=== PATIENT | male | born 2000 | race Caucasian/White ===

== ENCOUNTER 2022-01-13 21:04 | Emergency (ER) | payer OTHER ==
[~2022-01-13] VITALS: Ht 182.9 cm; Wt 86.2 kg
[2022-01-13 21:05] VITALS: BP 155/80
--- NOTE | 2022-01-13 21:13 | NUR ---
GIUSEPPE KOO ON A 5150 HOLD. TAKEN TO CHAIR
[2022-01-13 21:45] LABS: BASOPHILS # (AUTO) 0.2 K/uL (0.00-0.22); BASOPHILS % (AUTO) 2.3 % (0.0-2.0); EOSINOPHILS # (AUTO) 0.1 K/uL (0-0.4); EOSINOPHILS % (AUTO) 1.4 % (0.0-4.0); HEMATOCRIT 41.3 % (36-52); HEMOGLOBIN 14.5 g/dL (12.0-18.0); LYMPHOCYTES # (AUTO) 2.1 K/uL (2.0-11.5); MEAN CORPUSCULAR HEMOGLOBIN 30 pg (27-31); MEAN CORPUSCULAR HGB CONC 35 g/dL (33-37); MEAN CORPUSCULAR VOLUME 84.5 fL (80-94); MONOCYTES # (AUTO) 0.3 K/uL (0.8-1.0); MONOCYTES % (AUTO) 4.6 % (1.7-9.3); NEUTROPHILS # (AUTO) 4.4 K/uL (1.8-7.7); NEUTROPHILS % (AUTO) 61.7 % (42.2-75.2); PLATELET COUNT (AUTO) 258 K/uL (140-450); RED BLOOD CELL COUNT(AUTO) 4.89 MIL/uL (4.20-6.10); RED CELL DISTRIBUTION WIDTH 13.3 % (11.6-13.7); WHITE BLOOD COUNT (AUTO) 7.1 K/uL (4.5-11.0)
[2022-01-13 22:01] LABS: ALBUMIN 4.2 g/dL (3.4-5.0); ANION GAP 11.6 (8-16); ASPARTATE AMINOTRANSFERASE 30 U/L (15-37); CARBON DIOXIDE 28.5 mmol/L (21-32); CHLORIDE 103 mmol/L (98-107); GFR ARICAN-AMERICAN 123 mL/min (>90); GLUCOSE 99 mg/dL (74-106); POTASSIUM 4.1 mmol/L (3.5-5.1); SODIUM SERUM 139 mmol/L (136-145); TOTAL BILIRUBIN 0.5 mg/dL (0.0-1.0); UREA NITROGEN, BLOOD 17 mg/dL (7-18)
[2022-01-13 22:02] LABS: SALICYLATE < 2.8 mg/dL (2.8-20.0)
[2022-01-13 22:03] LABS: ACETAMINOPHEN < 0.5 ug/ml (10-30)
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
--- NOTE | 2022-01-13 22:26 | NUR ---
DR MARK AT BEDSIDE FOR EXAM
[2022-01-13 23:36] LABS: BARBITURATE, URINE NEGATIVE ng/ml (NEG <=200); BENZODIAZEPINE, URINE NEGATIVE ng/mL (NEG <=200); CANNABINOID, URINE POSITIVE ng/mL (NEG <=50); COCAINE, URINE NEGATIVE ng/mL (NEG <=300); OPIATE, URINE NEGATIVE ng/mL (NEG <=2000); PHENCYCLIDINE SCREEN,URINE NEGATIVE ng/mL (NEG <=25)
--- NOTE | 2022-01-14 03:00 | NUR ---
RESTING IN BED WITH EYES CLOSED RESPIRATIONS REGULAR AND UNLABORED
--- NOTE | 2022-01-14 03:04 | NUR ---
Taran decker in [facility] - 01/14/22 at 0342 by VEL Ultrasound at bedside.
--- NOTE | 2022-01-14 07:19 | NUR ---
DR SILVERIO AT BEDSIDE EVALUATING PT
--- NOTE | 2022-01-14 07:25 | NUR ---
REPORT RECEIVED FROM TERESA DUNN FOR PATIENT CONTINUITY OF CARE.
--- NOTE | 2022-01-14 07:33 | NUR ---
Received intake this AM. Information has been faxed to [facility] for review for placement. Will keep ER informed and updated. At this time they are awaiting discharges.
--- NOTE | 2022-01-14 08:11 | NUR ---
PT PROVIDED WITH BREAKFAST TRAY. PT EATING QUIETLY AT THIS TIME
--- NOTE | 2022-01-14 08:40 | NUR ---
PATIENT STATES HE DOES NOT WANT TO EAT PROVIDED BREAKFAST, PROVIDED WITH SANDWICH AND WATER AT BEDSIDE. ALL PATIENT NEEDS MET AT THIS TIME, WILL CONTINUE TO MONITOR.
--- NOTE | 2022-01-14 09:15 | NUR ---
PATIENT AMBULATED TO RESTROOM W/ STEADY GAIT. FEMALE STOREPERSON AWAITING OUTSIDE OF RESTROOM.
--- NOTE | 2022-01-14 09:18 | NUR ---
PATIENT AMBULATED BACK TO BED W/ STEADY GAIT.
--- NOTE | 2022-01-14 09:37 | NUR ---
DR. Law EVALUATING PATIENT VIA TELEPSYCH
--- NOTE | 2022-01-14 10:00 | NUR ---
Note brianne in EDM - 01/14/22 at 1038 by [email or web address] Patient discharged with v/s stable. Written and verbal after care instructions about depression screening and cannabis use disorder given and explained. Patient verbalized understanding. Ambulatory with steady gait. All questions addressed prior to discharge. Advised to follow up with PMD. Patient given mental and substance abuse resource packets.
[2022-01-14 10:30] VITALS: BP 126/77
--- NOTE | 2022-01-14 10:30 | NUR ---
Note brianne in EDM - 01/14/22 at 1037 by [email or web address] Patient discharged with v/s stable. Written and verbal after care instructions about depression screening and cannabis use disorder given and explained. Patient verbalized understanding. Ambulatory with steady gait. All questions addressed prior to discharge. Advised to follow up with PMD. Patient given mental and substance abuse resource packets.
--- NOTE | 2022-01-14 10:31 | NUR ---
The patient's care was reviewed and supervised by Aide Avendano RN.
== END 2022-01-14 10:30 | disposition home or self-care (01) ==
LOC: MED 21:04
DX: R45.851 Suicidal ideations (principal); F12.10 Cannabis abuse, uncomplicated; Z20.822 Contact with and (suspected) exposure to COVID-19
CPT/HCPCS: 36415; 80053; 80305; 85025; 87426; 99285; G0480; G0482; U0003

== ENCOUNTER 2022-02-16 11:20 | Emergency (ER) | payer OTHER ==
[~2022-02-16] VITALS: Ht 190.5 cm; Wt 86.2 kg
[2022-02-16 11:30] VITALS: BP 120/86
--- NOTE | 2022-02-16 11:49 | NUR ---
Patient ambulated to bed 05 with steady/even gait.
--- NOTE | 2022-02-16 11:56 | NUR ---
21 y/o M BIB self from home c/o bee sting on . Patient states slight swelling on that progressively worsen. Pt states left eye swelling, warmth, redness, itchiness, and "gunk." Patient states taking Benadryl all day yesterday without relief to symptoms. Denies SOB, chest pain, sore throat, tongue swelling. Denies other medical complaints. Bed locked in lowest position, side rails x 1. PMH/Sx/Meds: Denies NKDA
[2022-02-16] MEDS ORDERED: methylPREDNISolone SS 125 MG in WATER STERILE 2 ML IM ONE (12:10)
[2022-02-16] MEDS ORDERED: DIPH25TA53 PO (12:11)
[2022-02-16] MEDS ORDERED: CEPH-588 PO (12:11)
[2022-02-16] MEDS ORDERED: PRED20TA5 PO (12:11)
[2022-02-16] MEDS ORDERED: WATER STERILE 0 ML MC ONE (12:27)
[2022-02-16] MEDS ORDERED: methylPREDNISolone SS 125 MG/2 ML VIAL ONE (12:27)
--- NOTE | 2022-02-16 12:47 | NUR ---
Patient discharged with v/s stable. Written and verbal after care instructions ABOUT BEE, WASP, OR HORNET STING given and explained. Patient alert, oriented and verbalized understanding of instructions. Ambulatory with steady gait. All questions addressed prior to discharge. ID band removed. Patient advised to follow up with PMD. Rx of KEFLEX, BENADRYL, AND PREDNISONE given. Patient educated on indication of medication including possible reaction and side effects. Opportunity to ask questions provided and answered.
== END 2022-02-16 12:47 | disposition home or self-care (01) ==
LOC: MED 11:20
DX: T63.441A Toxic effect of venom of bees, accidental (unintentional), initial encounter (principal); L03.213 Periorbital cellulitis; Z79.899 Other long term (current) drug therapy; Y92.89 Other specified places as the place of occurrence of the external cause
CPT/HCPCS: 96372; 99283; J2930